=== PATIENT | female | born 1970 | race African-American/Black ===

== ENCOUNTER 2021-12-03 12:01 | Day surgery (SDC) | payer MEDICAID ==
[~2021-12-03] VITALS: Ht 170.2 cm; Wt 78.0 kg
[2021-12-03] VITALS (8 sets, daily range): BP systolic 122–139; BP diastolic 78–95; PULSE 70–91; TEMP 97.8
[2021-12-03 13:49] LABS: HEMOGLOBIN 11.8 g/dl (12.5-16.0); MEAN CELL VOLUME 81 fl (80.0-100.0); MEAN CORPUSCULAR HEMOGLOBIN 27 pg (27-31); MEAN CORPUSCULAR HGB CONC 34 g/dl (33.0-37.0); MEAN PLATELET VOLUME 9.7 fl (7.4-10.4); PLATELET COUNT 385 K/mm3 (130-400); REDCELL DISTRIBUTION WIDTH-CV 13.6 % (11.5-14.5)
[2021-12-03 14:07] LABS: INR 1.1 (0.8-3.0); PROTHROMBIN TIME 12.8 SECONDS (9.7-12.8)
[2021-12-03 14:08] LABS: CREATININE, serum 0.76 mg/dL (0.57-1.11); POTASSIUM 3.8 mmol/L (3.5-4.5)
[2021-12-03] MEDS ORDERED: ASPIRIN E.C. 8181 MG PO (14:09)
[2021-12-03 14:10] LABS: PARTIAL THROMBOPLASTIN TIME 33.6 SECONDS (26.0-37.0)
[2021-12-03] MEDS ORDERED: PLAVIX 75MG TAB75 MG PO (14:10)
[2021-12-03] MEDS ORDERED: SINGULAIR 110 MG/TAB (14:12)
[2021-12-03] MEDS ORDERED: HYZAAR 50-12.1 UDTAB PO (14:12)
[2021-12-03] MEDS ORDERED: LIPITOR20 MG PO (14:15)
--- NOTE | 2021-12-03 19:50 | NUR ---
PT recovered well from heart cath in express unit. TR band has been deflated with no problem. SIte dressed with bandaid, folded 2x2 and coban, cms intact distal. rt radial pulse was difficult to palpate, however was located easily with doppler distal and proximal to puncture site. 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 I reviewed dc and fu instructions with pt who verbalized understanding. She has been amb with steady gait in unit. She is amb to exit at time of departure. I walked with pt to waiting vehicle.
== END 2021-12-03 20:29 | disposition home or self-care (01) ==
LOC: COL.CAR 12:01
PROVIDERS: Internal Medicine Interventional Cardiology
DX: I20.9 Angina pectoris, unspecified (principal); R94.39 Abnormal result of other cardiovascular function study; R94.31 Abnormal electrocardiogram [ECG] [EKG]; Z79.82 Long term (current) use of aspirin
CPT/HCPCS: C1769; J1644; J2250; J3010